=== PATIENT | female | born 1990 | race Caucasian/White ===

== ENCOUNTER 2018-09-30 15:39 | Inpatient (IN) | payer OTHER ==
[~2018-09-30] VITALS: Ht 175.3 cm; Wt 94.8 kg
[2018-11-11] MEDS ORDERED: FLONASE16 GM NASAL (18:05)
[2018-11-11] MEDS ORDERED: PRENATAL TABLE1 EACH PO (18:05)
[2018-11-14] MEDS ORDERED: KETO10TA2 PO (07:44)
[2018-11-14] MEDS ORDERED: OXYC1TAB9 PO (07:44)
== END 2018-11-14 10:51 | disposition home or self-care (01) | DRG 788 ==
LOC: OB/GYN 10-27 15:30 → LDR 11-11 16:06 → OB/GYN 11-11 19:21
PROVIDERS: ADMIT Obstetrics & Gynecology Maternal & Fetal Medicine
PROC: 4A1HXCZ Monitoring of Products of Conception, Cardiac Rate, External Approach (ICD-10-PCS; 2018-11-11)
PROC: 10D00Z1 Extraction of Products of Conception, Low, Open Approach (ICD-10-PCS; principal; 2018-11-11 16:00)
DX: O82 Encounter for cesarean delivery without indication (principal); O76 Abnormality in fetal heart rate and rhythm complicating labor and delivery; Z3A.39 39 weeks gestation of pregnancy; Z37.0 Single live birth

== ENCOUNTER 2018-10-26 16:08 | Outpatient (CLI) | payer OTHER | END 2018-10-26 17:07 | disposition home or self-care (01) | LOC: NST 16:08 | DX: Z34.83 Encounter for supervision of other normal pregnancy, third trimester (principal) ==

== ENCOUNTER 2018-10-31 15:08 | Outpatient (CLI) | payer OTHER | END 2018-10-31 17:41 | disposition home or self-care (01) | LOC: NST 15:08 | DX: Z34.83 Encounter for supervision of other normal pregnancy, third trimester (principal) ==

== ENCOUNTER → 2018-11-11 | Outpatient (CLI) | payer OTHER ==
[~2018-11-11] MED LIST: FLONASE16 GM NASAL; KETO10TA2 PO; OXYC1TAB9 PO; PRENATAL TABLE1 EACH PO
== END | disposition home or self-care (01) ==
LOC: NST 14:45
DX: Z34.83 Encounter for supervision of other normal pregnancy, third trimester (principal)

== ENCOUNTER 2025-03-27 21:21 | Emergency (ER) | payer OTHER ==
[~2025-03-27] VITALS: Ht 175.3 cm; Wt 95.3 kg
[2025-03-27 23:53] LABS: BASO % 0.5 % (0.1-1.2); EOS # 0.11 (0.04-0.54); EOS % 1.3 % (0.7-7.0); LYMPH # 2.35 (1.18-3.74); LYMPH % 27.0 % (19.3-53.1); MEAN PLATELET VOLUME 9.10 fl (9.4-12.4); MONO # 0.55 (0.24-0.82); MONO % 6.3 % (4.7-12.5); NEUT # 5.62 (1.56-6.13); NEUT % 64.6 % (34.0-71.1); RED CELL DISTRIBUTION WIDTH 13.2 % (11.6-14.4)
[2025-03-27 23:58] LABS: URINE APPEARANCE Cloudy; URINE BILIRRUBIN Negative (NEGATIVE); URINE BLOOD Large; URINE COLOR Yellow; URINE GLUCOSE Negative (NEGATIVE); URINE KETONE Negative (NEGATIVE); URINE LEUKOCYTE Moderate; URINE NITRATE Negative; URINE PROTEIN Negative (NEGATIVE); URINE UROBILINOGEN 0.2 E.U./dl
[2025-03-28 00:02] LABS: URINE EPITHELIAL CELLS 27.0 uL (0.0-38.8); URINE RBC 14.9 uL (0.0-20.8); URINE WBC 136.6 uL (0.0-23.2)
[2025-03-28 00:27] LABS: INR 1.06
[2025-03-28 00:47] LABS: BUN CREA RATIO 10.0 (7.0-25.0); CREATININE SERUM 0.73 mg/dL (0.55-1.02); GFR 90.21; GLUCOSE FASTING 102.0 mg/dL (65-100); OSMOLALITY SERUM 279.0 MOSM/KG (275-295); URINE CAST 1.17 uL (0.0-1.40); URINE CRYSTALS FEW /HPF
[2025-03-28] MEDS ORDERED: CEPHALEXIN500 MG PO (02:10)
== END 2025-03-28 02:29 ==
LOC: ER 21:21
DX: O20.8 Other hemorrhage in early pregnancy (principal); Z3A.01 Less than 8 weeks gestation of pregnancy; Z87.09 Personal history of other diseases of the respiratory system